=== PATIENT | female | born 1950 | race Caucasian/White ===

== ENCOUNTER 2017-06-10 09:04 | Day surgery (SDC) | payer OTHER ==
[2017-06-09 12:14] LABS: Urine Appearance CLEAR; Urine Bilirubin NEGATIVE (NEG); Urine Blood NEGATIVE (NEG); Urine Color YELLOW; Urine Glucose NEGATIVE (NEG); Urine Protein NEGATIVE (NEG); Urine Specific Gravity 1.015 (1.005-1.030); Urine Urobilinogen 0.2 mg/dL (0.2-1.0)
[2017-06-09 12:16] LABS: Urine Microscopic Reflex NO UMIC
[2017-06-09 12:23] LABS: Absolute Lymphocytes (CBC) 1.3 K/uL (0.7-4.9); Absolute Monocytes 0.4 K/uL (0.1-1.3); Absolute Neutrophil 3.4 K/uL (1.8-8.0); Basophils % 0.6 % (0-1.3); Eosinophils % 0.9 % (0-4.4); Hematocrit 43.1 % (36.0-45.0); Lymphocytes % 24.5 % (15.3-44.8); MCV 96.1 fL (80-100); MPV 9.2 fL (7.6-11.3); Monocytes % 7.7 % (3.3-12.3); RBC Red Blood Cell Count 4.49 M/uL (3.86-4.86)
[2017-06-09 12:28] LABS: Protime INR 1.02
[2017-06-09 13:08] LABS: BUN Blood Urea Nitrogen 17 mg/dL (6-20); Bicarbonate 30 mEq/L (21-31); Glucose Level 102 mg/dL (65-120); Potassium 4.9 mEq/L (3.6-5.0); Sodium Level 137 mEq/L (135-145)
--- OUTSIDE RECORDS SUMMARY | 2017-06-10 09:05 | XMS REPORT | Clinical Summary ---
:1950 Author Organization [facility] Address [address] [place] [address] Care Team Providers Name Role Phone Adria Rock DO Primary Care Provider Allergies No Known Allergies Current Medications Prescription Sig. Disp. Refills Start Date End Date Status ferrous sulfate TAKE 1 TABLET 30 tablet 6 11/25/2015 Active 324 mg (65 mg BY MOUTH iron) EVERY DAY tablet,delayed release (DR/EC) EC tablet brimonidine 03/11/2016 Active (ALPHAGAN) 0.15 % ophthalmic solution latanoprost INSTILL 1 1 01/08/2016 Active (XALATAN) 0.005 % DROP IN BOTH ophthalmic EYES AT solution BEDTIME omeprazole Take 20 mg by 5 01/22/2016 Active (PriLOSEC) 20 MG mouth once capsule daily. azithromycin TAKE 2 0 01/22/2016 Active (ZITHROMAX) 250 MG TABLETS BY tablet MOUTH TODAY, THEN TAKE 1 TABLET DAILY FOR 4 DAYS timolol 03/10/2016 Active (TIMOPTIC-XE) 0.5 % ophthalmic gel-forming ursodiol 300mg tab 270 capsule 11 05/22/2016 Active (ACTIGALL) 300 mg tabs two tabs capsule in am then one tab in pm 3 month supply azaTHIOprine TAKE 1 TABLET 30 tablet 02/09/2017 02/09/2018 Active (IMURAN) 50 mg EVERY DAY tablet azaTHIOprine Take 1 tablet 30 tablet 11/25/2015 07/12/2016 Discontinued (IMURAN) 50 mg (50 mg total) tablet by mouth once daily for 30 days. azaTHIOprine Take 1 tablet 30 tablet 11 05/22/2016 05/22/2017 (IMURAN) 50 mg (50 mg total) tablet by mouth daily. azaTHIOprine TAKE 1 TABLET 30 tablet 6 07/12/2016 11/20/2016 Discontinued (IMURAN) 50 mg EVERY DAY tablet Active Problems Problem Noted Date Overlap syndrome 05/22/2016 PBC (primary biliary cholangitis) 03/13/2016 Autoimmune hepatitis Abnormal liver function tests Vitamin D deficiency Iron deficiency Encounters Date Type Specialty Care Team Description 05/10/2017 Telephone Hepatology Kacie Champion LVN 04/09/2017 Orders Only Gastroenterology Varun Adorno MD 02/09/2017 Refill Hepatology Varun Adorno MD 11/20/2016 Office Visit Gastroenterology Varun Adorno, Autoimmune hepatitis (Primary Dx); PBC (primary biliary cirrhosis); Abnormal LFTs; Abnormal liver function tests; Overlap syndrome 07/12/2016 Refill Hepatology Varun Adorno MD after 06/09/2016 Social History Tobacco Use Types Packs/Day Years Used Date Never Smoker Smokeless Tobacco: Never Used Alcohol Use Drinks/Week oz/Week Comments No Sex Assigned at Date Recorded Not on file Last Filed Vital Signs Vital Sign Reading Time Taken Blood Pressure 151/76 11/20/2016 8:50 AM CDT Pulse 76 11/20/2016 8:50 AM CDT Temperature - - Respiratory Rate - - Oxygen Saturation - - Inhaled Oxygen Concentration - - Weight 56.7 kg (125 lb) 11/20/2016 8:50 AM CDT Height 142.2 cm (4' 8") 11/20/2016 8:50 AM CDT Body Mass Index 28.02 11/20/2016 8:50 AM CDT Plan of Treatment Date Type Specialty Care Team Description 07/02/2017 Office Visit Gastroenterology Varun Adorno MD [address] [address] Health Maintenance Due Date Last Done Comments COLONOSCOPY 1999 MAMMOGRAM 1999 ZOSTER VACCINE 2009 PNEUMOCOCCAL POLYSACCHARIDE VACCINE AGE 65 AND OVER 2014 PNEUMOCOCCAL-13 2014 INFLUENZA VACCINE 09/29/2017 Results Cancer antigen 19-9 (04/09/2017 9:31 AM) Component Value Ref Range CA 19-9 5 <34 U/mL Comment: This test was performed using the Siemens chemiluminescent method. Values obtained from different assay methods cannot be used interchangeably. CA 19-9 levels, regardless of value, should not be interpreted as absolute evidence of the presence or absence of disease. Specimen Performing Laboratory [facility] Narrative FASTING:YES FASTING: YES Alpha fetoprotein (04/09/2017 9:31 AM) Component Value Ref Range Alpha fetoprotein 2.1 ng/mL Comment: Reference Range: <6.1 The use of AFP as a tumor marker in females is not recommended. This test was performed using the Katarina Praveena chemiluminescent method. Values obtained from different assay methods cannot be used interchangeably. AFP levels, regardless of value, should not be interpreted as absolute evidence of the presence or absence of disease. Specimen Performing Laboratory [facility] Narrative FASTING:YES FASTING: YES Prothrombin time with INR (04/09/2017 9:31 AM) Component Value Ref Range INR 1.0 Comment: Reference Range 0.9-1.1 Moderate-intensity Warfarin Therapy 2.0-3.0 Higher-intensity Warfarin Therapy 3.0-4.0 Prothrombin time 11.1 9.0 - 11.5 sec Comment: For more information on this test, go to: http://education.Site9/faq/PYK015 Specimen Performing Laboratory [facility] Narrative FASTING:YES FASTING: YES CBC with platelet and differential (04/09/2017 9:31 AM)Only the most recent of3 resultswithin the time period is included. Component Value Ref Range WBC 5.6 3.8 - 10.8 Thousand/uL RBC 4.65 3.80 - 5.10 Million/uL HGB 14.6 11.7 - 15.5 g/dL HCT 43.0 35.0 - 45.0 % MCV 92.5 80.0 - 100.0 fL MCH 31.4 27.0 - 33.0 pg MCHC 34.0 32.0 - 36.0 g/dL RDW 12.4 11.0 - 15.0 % Platelet count 184 140 - 400 Thousand/uL MPV 10.7 7.5 - 12.5 fL Neutrophils, absolute 4,368 1,500 - 7,800 cells/uL Lymphocytes, absolute 790 (L) 850 - 3,900 cells/uL Monocytes, absolute 330 200 - 950 cells/uL Eosinophils, absolute 90 15 - 500 cells/uL Basophils, absolute 22 0 - 200 cells/uL Neutrophils 78 % Lymphocytes 14.1 % Monocytes 5.9 % Eosinophils 1.6 % Basophils + RC 0.4 % Specimen Performing Laboratory [facility] Narrative FASTING:YES FASTING: YES Comprehensive metabolic panel (04/09/2017 9:31 AM)Only the most recent of2 resultswithin the time period is included. Component Value Ref Range Glucose 106 (H) 65 - 99 mg/dL Comment: Fasting reference interval For someone without known diabetes, a glucose value between 100 and 125 mg/dL is consistent with prediabetes and should be confirmed with a follow-up test. BUN, whole blood 19 7 - 25 mg/dL Creatinine 0.60 0.50 - 0.99 mg/dL Comment: For patients >49 years of age, the reference limit for Creatinine is approximately 13% higher for people identified as -Egyptian. EGFR Non-Afr. Egyptian 94 > OR=60 mL/min/1.73m2 EGFR 109 > OR=60 mL/min/1.73m2 BUN/creatinine ratio NOT APPLICABLE 6 - 22 (calc) Sodium 142 135 - 146 mmol/L Potassium 4.3 3.5 - 5.3 mmol/L Chloride 103 98 - 110 mmol/L CO2 33 (H) 20 - 31 mmol/L Calcium 9.4 8.6 - 10.4 mg/dL Protein 7.2 6.1 - 8.1 g/dL Albumin, S 4.2 3.6 - 5.1 g/dL Globulin, total 3.0 1.9 - 3.7 g/dL (calc) Albumin/globulin ratio 1.4 1.0 - 2.5 (calc) Total bilirubin 0.5 0.2 - 1.2 mg/dL Alkaline phosphatase 172 (H) 33 - 130 U/L AST 29 10 - 35 U/L ALT 19 6 - 29 U/L Specimen Performing Laboratory [facility] Narrative FASTING:YES FASTING: YES Immunoglobulin G, A, M (09/22/2016 8:37 AM)Only the most recent of2 resultswithin the time period is included. Component Value Ref Range IgA 409 81 - 463 mg/dL IgG 1,107 694 - 1,618 mg/dL IgM 164 48 - 271 mg/dL Specimen Performing Laboratory [facility] Narrative FASTING:YES PATIENT REFUSED SOME TESTING; PATIENT ENCOURAGED TO RETURN. Hemoglobin A1c (09/22/2016 8:37 AM) Component Value Ref Range Hemoglobin A1C 5.2 <5.7 % of total Hgb Comment: For the purpose of screening for the presence of diabetes: <5.7% Consistent with the absence of diabetes 5.7-6.4%Consistent with increased risk for diabetes (prediabetes) > or=6.5%Consistent with diabetes This assay result is consistent with a decreased risk of diabetes. Currently, no consensus exists regarding use of hemoglobin A1c for diagnosis of diabetes in children. According to [place] Diabetes Association (ADA) guidelines, hemoglobin A1c <7.0% represents optimal control in non- diabetic patients. Different metrics may apply to specific patient populations. Standards of Medical Care in Diabetes(ADA). Specimen Performing Laboratory [facility] Narrative FASTING:YES PATIENT REFUSED SOME TESTING; PATIENT ENCOURAGED TO RETURN. after 06/09/2016 Insurance Payer Benefit Plan / Group Subscriber ID Type Phone Address [employer] MEDICARE AETNA MEDICARE HMO/PPO [facility] xxxxxxxx HMO Home: [address] [phone] [place], [place] [id number]
[2017-06-10] MEDS ORDERED: Ringers Lactate 1,000 ML IV ONE ×3 (09:49→14:49)
[2017-06-10] MEDS ORDERED: CEFAZOLIN/SWI 1gm 1 GM/10 ML SYR ONE (09:50)
[2017-06-10] MEDS ORDERED: ONDANSETRON 4 MG/2 ML VIAL ONE (12:57)
[2017-06-10] MEDS ORDERED: MIDAZOLAM HCL 2 MG/2 ML INJ ONE (12:57)
[2017-06-10] MEDS ORDERED: FENTANYL CITR 250 MCG/5 ML ONE (12:57)
[2017-06-10] MEDS ORDERED: PROPOFOL 200 MG/20 ML VIAL IV ONE (12:57)
[2017-06-10] MEDS ORDERED: ROCURONIUM 50 MG/5 ML VIAL IV ONE (12:57)
[2017-06-10] MEDS ORDERED: LIDOCAINE 2% MPF 5 ML VIAL ONE (12:59)
[2017-06-10] MEDS ORDERED: NA CHLORIDE 0.9% 100 ML IV ONE (13:02)
[2017-06-10] MEDS ORDERED: VASOPRESSIN 20 UNIT/ML VIAL ONE (13:02)
[2017-06-10] MEDS ORDERED: CEFAZOLIN SODIUM 1 GM/VIAL ONE (13:02)
[2017-06-10] MEDS ORDERED: NS 0.9% VIAL 10 ML ONE (13:02)
[2017-06-10] MEDS ORDERED: GLYCOPYRROLATE 0.2 MG/ML SYR ONE ×2 (13:40→15:46)
[2017-06-10] MEDS ORDERED: KETOROLAC 30 MG/ML INJ ONE (15:47)
[2017-06-10] MEDS ORDERED: DEXAMETHASONE 10 MG/ML VIAL ONE (15:48)
[2017-06-10] MEDS ORDERED: ONDANSETRON 4 MG/2 ML VIAL IV PRN (16:15)
[2017-06-10] MEDS: Ringers Lactate 1,000 ML IV SCH (17:50)
[2017-06-10] MEDS: MORPHINE 4 MG/ML SYR IV PRN (19:58)
[2017-06-11] MEDS: Ringers Lactate 1,000 ML IV SCH (00:31)
--- NOTE | 2017-06-11 05:14 | OP ---
Date of Procedure: 06/10/2017 Surgeon: Ronda Green MD Preoperative Diagnoses: Incomplete uterovaginal prolapse, stage II anterior wall prolapse (cystocele ), posterior wall prolapse (rectocele), posterior enterocele. Postoperative Diagnoses: Incomplete uterovaginal prolapse, stage II anterior wall prolapse (cystocele), posterior wall prolaps e (rectocele), posterior enterocele. Procedure Performed: 1.Cystocele repair with Uphold graft. 2.Bilateral sacrospinous ligament fixation, colpopexy. 3.Rectocele repair, perineorrhaphy. 4.Posterior enterocele repair and cystoscopy. 5.Anterior enterocele repair. Anesthesia: General. Specimens: No specimens. Complications: No complications. Drains: Houston and vaginal packing. Estimated Blood Loss: 100. Urine Output: 150. Findings: The patient's POP-Q is 0, +2, -3. Genital hiatus 3 cm. Perineal body moderate. Total va ginal length 6 cm, -2, -1, and not applicable. Posterior enterocele was present. Indications: The patient is a 67-year-old female with complaints of vaginal wall prolapse. She was nurse evaluated for the prolapse. POP-Q very similar to above, mostly an anterior defect with a smal l apical defect and possible posterior defect were detected. Discussed the use of pessary. The kendra ent was brought back for pessary fitting; however, she declined pessary fitting at that time after so me thought at home. We discussed the benefits and risks of pessary compared to surgical treatment, h owever, she wanted to proceed with surgical treatment and so we evaluated her with urodynamic testing . No major voiding dysfunction was noted. She definitely had no complaints of stress urinary incont inence and no demonstrable stress urinary incontinence on test systematic testing. There was a negat chris cough stress test with traction of prolapse. Cystoscopy was performed. 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 Other than that, no evidence of any bladder tumors, ulcers, or stones. The p atient has autoimmune hepatitis. Her sr risk management consultant had been contacted to ask recommendations about st opping the azathioprine that is AZT that she is on. However, it was recommended that this would not alter the course of postop recovery, so she was given vaginal estrogen and she would continue the AZT unless there comes to be a problem with healing. The patient was given the options of vaginal laparoscopic repair for her defect, the option, the bene fits and efficacies, and risks of laparoscopic and vaginal repairs, asa'[place] tissue, vaginal repair epifanio kajal graft augmentation vaginal repair, biological and synthetic grafts were all compared and discusse d clearly with the patient. The FDA warning was also discussed and the patient understood the compli cations that were mentioned there and after understanding everything she was consented for synthetic repair vaginally since the anterior defect appeared to be the biggest defect for the patient. Description Of Procedure: After informed consent was verified, she was taken back to OR, placed in s upine fashion on the operating table. One gram of Ancef was given. She was placed in a dorsal litho dragan position. Pelvic exam was performed, POP-Q, which as dictated in the findings above. Lower abdomen, vulva, vagina, and perineum were prepped and draped in a sterile fashion. Houston was p laced to drain the bladder and clamped with a Bettie and retracted superiorly. The area of the distal anterior vaginal midline wall was picked up with an Allis clamp and the vaginal cuff was identified and two 3-0 Vicryl sutures were placed. Adhesion of the cuff, midline injection with 20 units of vas opressin dilated with 50 cc of normal saline was injected 20 cc. Once this was done, an incision was made on the vaginal epithelium. The epithelium was held with Allis clamps. Dissection was performe d underneath the vaginal epithelium and endopelvic fascia and into the vesicovaginal space. Once thi s was performed, the bladder was taken down without any problems and on both sides passed the sulcus. Paravesical space was entered and the pararectal space was entered. Ischial spine was palpated, an d the sacrospinous ligament was cleaned up by sweeping medially and posterior to the ischial spine to wards the midline. Then, once the loose connective tissue was all cleaned up, the sacrospinous ligam ent was very evident. Then, the space was opened up enough to allow the Capio to go in easily. Once all this dissection was performed, the enterocele was visible anteriorly. This was taken down caref ully from the apex and the peritoneum dissected intact without entering into the enterocele sac. The n, on the left side, similar dissection was performed in the proximal part of the vaginal cuff and th is apical enterocele was taken down. Once all the enterocele was isolated, then 2 pursestring suture s with 3-0 Vicryl were placed in a concentric fashion to close down the enterocele and reduce it. On ce this was done, then the left paravesical space, pararectal spaces were entered and the ischial spi ne palpated and the sacrospinous ligament was exposed without any problems. Once this was well expos ed, then the Uphold graft was taken. The arms were placed about 2 cm medial and posterior to the isc hial spine on the right side and about 1.5 cm posterior and medial to the ischial spine on the sacros pinous ligament without going around the ligament. Once these 2 sutures were placed and there were f ound to be adequate bites into the ligament. The dilators were pulled through and then the mesh arms were placed. The plastic sleeves were pulled through as well enough to hold the graft in place, the n at the proximal-most part of the graft, the graft was tacked with 3-0 Vicryl suture to the vaginal apex at the level of the vault. Three sutures were placed on either sides along with the midline one and these were attached with the graft to the vaginal cuff. Once these were tied down, the graft wa s tensioned. The midline distal part of the graft was secured with the help of another 3-0 Vicryl hughes ture. Then, further tensioning was performed after starting the closure of the vaginal mucosa with t he 2-0 Vicryl in a continuous running horizontal mattress fashion, about a cm was closed, then comple te tensioning was done. The plastic sleeves and dilators were cut appropriately on the left and then on the right side and pulled out without creating any further tension. There was a slight pull on t he left, which was released by lifting the proximal most part of the graft away from the ligament and this tiny tug helped loosen the pucker of the mesh bridge that it created. Once this was laid perfe ctly, then went down to close the rest of the vaginal epithelium in the horizontal mattress fashion. After the anterior repair, the posterior appeared to have a small enterocele as well through the prox imal third of the posterior wall, so there also appeared to be specific defect in the distal 1/3 on t he left side and on the right. After these tears were identified by doing a rectovaginal exam, then went on to place Allis clamps on either side of the hymenal opening. Injection was performed with va sopressin 10 cc at the perineum and along the posterior midline vaginal wall. Once this was done, th e triangular skin incision was made on the perineum in the vestibule. The skin was excised and the p osterior compartment was accessed. This was opened up all the way about 2 cm distal to the cuff. Th e dissection was stopped here. The rectovaginal septum was dissected away from the vaginal epitheliu m and at top 1/3, there was posterior and high enterocele likely a continuum of the enterocele from t he top; however, this did not go as high as the cuff, so I presumed that this probably also is a side specific defect, so the enterocele sac was identified, reduced with the help of 3-0 Vicryl pursestri ng suture, and this defect here was closed with the help of a continuous running 2-0 suture, then com ing down distally to the distal 1/3, there was a tear on the left and then on the right. These were closed with a continuous running 2-0 Vicryl sutures. Then, trimmed the vaginal mucosa very minimally less than a quarter of a cm just to freshen the edges and take out the dense scar that was present d istal third likely from her episiotomy repairs. Once this was done, there was healthy mucosa and the vaginal incision was closed in a continuous running locked fashion to the level of the hymen. Then from there, 3-0 Vicryl was used to close in a subcutaneous fashion and subcuticular fashion. Before this was done, the perineal body was reapproximated with the help of three 2-0 Vicryl sutures in an i nterrupted fashion. Rectal exam was done and the flow was changed and went on to take the [place] out and perform a cystosc opy. A 17-Greenlandic sheath, 30-degree lens and normal saline were used for cystoscopy, went into the bladder. No evidence of any foreign body tumor in the bladder. The diverticulum of the bladder was evident on the right side of the patient. Other than this, no other pathology was found. Both ureteric orif ices were visualized and had strong jets of urine from them. The scope was pulled out. Urethroscopy was performed as we did this and there was no evidence of any trauma or malignancy. No evidence of any trauma or mass. Scope was pulled out and the bladder was drained. After this was done, [place] wa s reinserted. Vaginal packing was placed. Rectal exam negative. Instrument, needle, and sponge cou nts x3 were correct at the end of the case. The patient tolerated the procedure well. She will be followed up with me in 1 week. MARIA ANTONIA/JAMES Voice ID: [id number] Report ID: [id number]
[2017-06-11] MEDS: MORPHINE 4 MG/ML SYR IV PRN (06:06)
[2017-06-11 06:22] LABS: Absolute Lymphocytes (CBC) 0.9 K/uL (0.7-4.9); Absolute Monocytes 0.7 K/uL (0.1-1.3); Absolute Neutrophil 8.2 K/uL (1.8-8.0); Basophils % 0.4 % (0-1.3); Eosinophils % 0.2 % (0-4.4); Hematocrit 38.3 % (36.0-45.0); Lymphocytes % 8.9 % (15.3-44.8); MCV 95.5 fL (80-100); MPV 9.1 fL (7.6-11.3); Monocytes % 7.3 % (3.3-12.3); RBC Red Blood Cell Count 4.02 M/uL (3.86-4.86)
[2017-06-11] MEDS ORDERED: PSYLLIUM 1 PKT PO SCH (09:00)
[2017-06-11] MEDS ORDERED: LATANOPROST 0.005% 2.5ML OPTH OPTH SCH (09:00)
[2017-06-11] MEDS ORDERED: PSYLLIUM HUSK 0.52 GM PO SCH (09:00)
[2017-06-11] MEDS ORDERED: POLYETHYL GLY 3350 17 GM/DOSE PO SCH (09:00)
[2017-06-11] MEDS ORDERED: DOCUSATE NA 100 MG CAP PO SCH (09:00)
[2017-06-11] MEDS ORDERED: HOME MED 1 EA UNK (Polyethylene Glycol 3350 [Miralax] 17 GM) PO SCH (09:00)
== END 2017-06-11 13:05 | disposition home or self-care (01) ==
LOC: OR 09:04 → 2ND-WC 16:20 → UNDOADMOB 16:34 → OR 06-11 13:05
PROVIDERS: ATTEND Obstetrics & Gynecology
PROC: 0JUC0JZ Supplement of Pelvic Region Subcutaneous Tissue and Fascia with Synthetic Substitute, Open Approach (ICD-10-PCS; 2017-06-10)
PROC: 0JQC0ZZ Repair Pelvic Region Subcutaneous Tissue and Fascia, Open Approach (ICD-10-PCS; 2017-06-10)
PROC: 0WQNXZZ Repair Female Perineum, External Approach (ICD-10-PCS; 2017-06-10)
PROC: 0USG7ZZ Reposition Vagina, Via Natural or Artificial Opening (ICD-10-PCS; 2017-06-10)
PROC: 0UQF0ZZ Repair Cul-de-sac, Open Approach (ICD-10-PCS; principal; 2017-06-10 10:30)
DX: N81.2 Incomplete uterovaginal prolapse (principal); N39.3 Stress incontinence (female) (male); N32.81 Overactive bladder; M85.80 Other specified disorders of bone density and structure, unspecified site; H40.9 Unspecified glaucoma; K75.4 Autoimmune hepatitis; K21.9 Gastro-esophageal reflux disease without esophagitis; Z82.49 Family history of ischemic heart disease and other diseases of the circulatory system
CPT/HCPCS: 36415 ×2; 57265; 57267; 57282; 80048; 81003; 82306; 85025 ×2; 85610; 85730; 86850; 86900; 86901; J0690 ×2; J1100; J2250; J2405 ×2